=== PATIENT | female | born 1950 | race American Indian/Alaskan Native ===

== ENCOUNTER 2016-04-30 18:05 | Emergency (ER) | payer MEDICARE ==
--- NOTE | 2016-04-30 20:17 | Emergency Department Report ---
Chief Complaint: Hyperglycemia Stated Complaint: HIGH BLOOD SUGAR Time Seen by Provider: 04/30/16 20:17 - HPI History of Present Illness: 47 y/o sent from office for hypergycemia .pt blood sugar was 532 in office. - ROS Review of Systems: per HPI - Exam Vital Signs: Vital Signs 04/30/16 19:17 Temperature 98.9 F Pulse Rate 110 H Respiratory 18 Rate Blood Pressure 121/84 O2 Sat by Pulse 97 Oximetry Physical Exam: GENERAL: The patient is well-developed and well-nourished. Patient is in NAD. HENT: Normocephalic. Atraumatic. Patient has moist mucous membranes. Throat: No erythema, swelling or exudates. EYES: Extraocular motions are intact, PERRL NECK: Supple. No meningitic signs are noted. There is no adenopathy noted. CHEST/LUNGS: Clear to auscultation bilaterally. No wheezing, rales or rhonchi noted. There is no respiratory distress noted. HEART/CARDIOVASCULAR: Regular rate and rhythm. Normal S1 S2. No murmurs, rubs , clicks, or gallops. ABDOMEN: Abdomen is soft, nontender.. Bowel sounds normoactive. There is no abdominal distention. Negative rebound tenderness. : Deferred. SKIN: There is no rash. There is no edema. There is no diaphoresis. NEURO: The patient is A&Ox3. The patient has no focal neurologic deficits. MUSCULOSKELETAL: There is no tenderness or deformity. There is no limitation range of motion. PSYCH: Pt has appropriate mood and affect. MSE screening note: Focused history and physical exam performed. Due to findings the following was ordered: ED Disposition for MSE Condition: Stable
[2016-04-30 20:52] LABS: Basophils % (Auto) 0.4 % (0.0-1.8); Eosinophils % (Auto) 0.3 % (0.0-4.3); Hematocrit 35.1 % (30.3-42.9); Hemoglobin 11.7 gm/dl (10.1-14.3); Mean Corpuscular HGB Conc 33 % (30-34); Mean Corpuscular Hemoglobin 28 pg (28-32); Mean Corpuscular Volume 84 fl (79-97); Platelet Count 356 K/mm3 (140-440); Red Blood Count 4.16 M/mm3 (3.65-5.03); Red Cell Distribution Width 14.3 % (13.2-15.2); White Blood Count 7.2 K/mm3 (4.5-11.0)
[2016-04-30 21:04] LABS: INR 0.95 (0.87-1.13)
[2016-04-30 21:14] LABS: BUN/Creatinine Ratio 18.75; Blood Urea Nitrogen 30 mg/dL (7-17); Calcium 8.9 mg/dL (8.4-10.2); Carbon Dioxide 19 mmol/L (22-30); Chloride 96.2 mmol/L (98-107); Potassium 4.3 mmol/L (3.6-5.0); Sodium 132 mmol/L (137-145)
[2016-04-30 21:16] LABS: Creatine Kinase MB 1.1 ng/mL (0.0-4.0)
[2016-04-30 21:19] LABS: Anion Gap 21 mmol/L; Glucose 539 mg/dL (65-100)
[2016-04-30] MEDS ORDERED: NACL 0.9% 1000 ML 1,000 ML IV ONE ×2 (21:27→23:01)
--- NOTE | 2016-04-30 21:29 | Emergency Department Report ---
HPI - General Chief Complaint: Hyperglycemia Time Seen by Provider: 04/30/16 20:25 - HPI HPI: The patient is a 65-year-old female who presents for evaluation of elevated blood sugar and episodic lightheadedness. The patient arrives with her daughter who contributes to history of present illness. They report that the patient has experienced mild episodic lightheadedness, elicited with position changes, and improved with lying flat and resting. Her symptoms have been on and off for the past one week. The daughter says that she has not been providing the patient her insulin for some time due to the daughter's decision to attempt to treat the patient holistically. The patient denies fever, headache, chest pain, dyspnea, hemoptysis, unilateral leg swelling, paresthesia , lateralizing motor deficit, or other focal neurological deficit ED Past Medical Hx - Past Medical History Previous Medical History?: Yes Hx Diabetes: Yes Additional medical history: Dementia - Surgical History Past Surgical History?: Yes Additional Surgical History: Hyst - Social History Smoking Status: Light Tobacco Smoker Substance Use Type: Alcohol - Medications Home Medications: Home Medications Medication Instructions Recorded Confirmed Last Taken Type Unobtainable 04/30/16 04/30/16 Unknown History ED Review of Systems ROS: Stated complaint: HIGH BLOOD SUGAR Other details as noted in HPI Constitutional: denies: fever; reports lightheadedness ENT: denies: throat or neck pain Respiratory: denies: cough, shortness of breath Cardiovascular: denies: chest pain Endocrine: denies unexplained weight loss or gain Gastrointestinal: denies: abdominal pain, nausea Genitourinary: denies: dysuria Musculoskeletal: denies: leg swelling Skin: denies: rash Neurological: denies: headache Hematological/Lymphatic: denies: easy bleeding or easy bruising Psych: denies sadness or hopelessness Physical Exam - Physical Exam Vital Signs: Vital Signs 04/30/16 04/30/16 19:17 20:53 Temperature 98.9 F Pulse Rate 110 H 94 H Respiratory 18 16 Rate Blood Pressure 121/84 Blood Pressure 136/94 [Right] O2 Sat by Pulse 97 95 Oximetry Physical Exam: General: well-nourished, well-developed, no acute distress Head: Normocephalic, atraumatic Eyes: normal sclera, EOMI, PERRL, no nystagmus ENT: Mucous membranes are pale and dry Neck: No neck stiffness, no cervical adenopathy Respiratory: Breath sounds equal bilaterally, no wheezing, rales, or rhonchi Cardio: S1 and S2 present, no murmurs, rubs, gallops, capillary refill is delayed Abdomen: Normoactive bowel sounds, soft abdomen, no rigidity, no guarding or rebound tenderness Musc: No pitting edema Skin: No rash Neuro: no facial drooping, normal speech Psych: Normal affect ED Course Vital Signs 04/30/16 04/30/16 19:17 20:53 Temperature 98.9 F Pulse Rate 110 H 94 H Respiratory 18 16 Rate Blood Pressure 121/84 Blood Pressure 136/94 [Right] O2 Sat by Pulse 97 95 Oximetry ED Medical Decision Making - Lab Data Result diagrams: 04/30/16 20:32 04/30/16 20:32 - Medical Decision Making The patient was seen and examined by myself. The patient is placed on a bonding machine setter and continuous pulse ox. On initial evaluation, the patient was found to be in no distress. Evaluation orders were placed. The patient is given 1 L normal saline fluid bolus for treatment of dehydration. Lab results revealed elevated glucose of 539, normal bicarbonate, not consistent with DKA. The patient is given IV insulin for treatment of hyperglycemia. The patient was reevaluated and found to have persistence of hyperglycemia. The patient is given a second liter of normal saline and a second dose of IV insulin is given. The patient was reevaluated and found to be asymptomatic. The patient's daughter is counseled extensively regarding importance of providing the patient her prescribed insulin regimen daily, and not attending to treat the patient's diabetes with holistic methods. The patient is stable for discharge with outpatient follow-up. The patient is given follow-up and return instructions. The patient expressed understanding and agreed with the plan. The patient is discharged in stable condition. Critical care attestation.: If time is entered above; I have spent that time in minutes in the direct care of this critically ill patient, excluding procedure time. ED Disposition Clinical Impression: Acute hyperglycemia, Dehydration, Lightheadedness Disposition: DISCHARGED TO HOME OR SELFCARE Is pt being admited?: No Does the pt Need Aspirin: No Condition: Stable Instructions: Diabetic Hyperglycemia (ED) Referrals: PRIMARY CARE, [Primary Care Provider] - 3-5 Days Time of Disposition: 21:28
[2016-04-30 22:45] LABS: Bacteria,Urine 1+ /HPF (Negative); Bilirubin,Urine NEG (Negative); Blood,Urine NEG (Negative); Ketones,Urine NEG (Negative); Leukocyte Esterase,Urine NEG (Negative); Mucus,Urine FEW /HPF; Nitrite,Urine NEG (Negative); Urobilinogen,Urine < 2.0 mg/dL (<2.0)
[2016-05-01 01:29] VITALS: BP 144/74
== END 2016-05-01 02:17 | disposition home or self-care (01) ==
LOC: ED 18:05 → EDBD 18:05 → ED 05-01 02:17
DX: E11.65 Type 2 diabetes mellitus with hyperglycemia (principal); E86.0 Dehydration; R42 Dizziness and giddiness; F03.90 Unspecified dementia, unspecified severity, without behavioral disturbance, psychotic disturbance, mood disturbance, and anxiety; Z72.0 Tobacco use
CPT/HCPCS: 36415; 80048; 81001; 82550; 82553; 82962; 84484; 85025; 85610; 93005; 93010; 96361; 96374; 96376; 99284; J7030; J1815